=== PATIENT | male | born 1970 | race Two or more races ===

== ENCOUNTER → 2019-09-18 | Outpatient (CLI) | payer BC ==
--- NOTE | 2019-09-18 12:03 | MR ---
EXAMINATION TYPE: MR shoulder RT wo con DATE OF EXAM: 09/18/2019 COMPARISON: Right shoulder radiographs dated 09/17/2019 HISTORY: Right shoulder pain TECHNIQUE: Multiplanar, multisequence imaging of the right shoulder is performed without contrast. FINDINGS: Rotator Cuff: There is a low-grade intrasubstance tear measuring 3 x 3 mm of the distal fibers of the supraspinatus superimposed upon mild tendinopathy with alteration of the intrinsic signal of the ten dinous fibers. The infraspinatus, teres minor, and subscapularis tendons are intact and unremarkable. Acromioclavicular Joint: There is moderate acromioclavicular arthropathy with subchondral cysts, caps ular hypertrophy, and marginal osteophytes. There is very minimal impression on the myotendinous junc tion of the supraspinatus. Glenohumeral Joint: Alignment and joint spaces maintained Labrum: The labrum appears grossly intact given limitation of non-arthrogram study. Biceps Tendon: The long head of biceps is in normal location within bicipital groove. Mild thickening of the intra-articular portion of the biceps tendon just before the insertion on the biceps anchor. Bone marrow signal: There is increased T2 signal and decreased T1 signal of the footplate of the aneesh ral head relating to subcortical cystic change. Other: Trace amount of fluid is seen in the subcoracoid recess. IMPRESSION: 1. Low-grade intrasubstance tear of the distal fibers of the supraspinatus measuring 3 x 3 mm with mi ld supraspinatus distal and insertional fiber tendinopathy. 2. Moderate acromioclavicular arthropathy with minimal impression on the myotendinous junction of the supraspinatus. 3. Subchondral cystic change of the greater tuberosity. 4. Trace amount of fluid in the subcoracoid recess that may clinically correlate with bursitis. 5. Mild intra-articular portion long head of the biceps tendinosis.
== END | disposition home or self-care (01) ==
LOC: RADMRIMAIN 10:57
PROVIDERS: ATTEND Orthopaedic Surgery
DX: M75.101 Unspecified rotator cuff tear or rupture of right shoulder, not specified as traumatic (principal); M12.811 Other specific arthropathies, not elsewhere classified, right shoulder; M67.813 Other specified disorders of tendon, right shoulder